=== PATIENT | female | born 1930 | race Caucasian/White ===

== ENCOUNTER 2016-12-14 19:21 | Inpatient (IN) | payer MEDICARE, OTHER ==
[2016-12-14] MEDS ORDERED: Sodium Chloride 0.9% 10 ML Syringe FLUSH PRN (19:38)
[2016-12-14] MEDS ORDERED: Sodium Chloride 0.9% 500 ML IV ONE (19:40)
[2016-12-14] MEDS ORDERED: Acetaminophen 325 MG Tab PO ONE (19:40)
[2016-12-14] MEDS ORDERED: Acetaminophen 500 MG Tab ONE (20:06)
[2016-12-14] MEDS ORDERED: Oseltamivir 75 MG Cap PO ONE (21:26)
[2016-12-15] MEDS: Sodium Chloride 0.9% 1,000 ML IV SCH ×3 (06:41→22:40)
[2016-12-15] MEDS ORDERED: Donepezil 10 MG Tab PO SCH (08:00)
[2016-12-15] MEDS ORDERED: Oseltamivir 75 MG Cap PO SCH (10:15)
[2016-12-15] MEDS ORDERED: atorvaSTATin 10 MG Tab PO ONE (10:16)
[2016-12-15] MEDS ORDERED: Loratadine 10 MG Tab PO ONE (10:20)
[2016-12-15] MEDS: Oseltamivir 30 MG Cap PO SCH ×2 (10:50→19:37)
[2016-12-15] MEDS: Memantine 10 MG Tab PO SCH (10:50)
[2016-12-15] MEDS: Cholecalciferol (Vitamin D3) 1,000 Unit Tab PO SCH (10:50)
[2016-12-15] MEDS: amLODIPine 2.5 MG Tab PO SCH (10:50)
[2016-12-15] MEDS: Nitroglycerin 0.4 MG/HR Transdermal Patch TRDERM SCH (10:51)
[2016-12-15] MEDS: Cyanocobalamin (Vitamin B12) 1,000 MCG Tab PO SCH (11:15)
[2016-12-15] MEDS: Calcium Carbonate 750 MG Tab.Chew PO SCH ×2 (11:15→19:37)
--- NOTE | 2016-12-15 11:54 | HP ---
REASON FOR ADMISSION: Weakness. HISTORY OF PRESENT ILLNESS: An 86-year-old white female brought to the emergency room by her daughter. The patient resides at [facility]. She has been ill since this past with some cough and some weakness and not being able to get up on the bed and not able to transfer appropriately, symptoms were progressively getting worse. She denied any chest pain or shortness of breath. She was having some fever, chills, and questionable sweats. No nausea or vomiting. She had some diarrhea yesterday. No urinary symptoms. She was assessed in the emergency room, found to have influenza A and some mild dehydration. She was given some Tamiflu and some IV fluids and placed on acute care hospitalization status for continuing care. PAST MEDICAL HISTORY: Significant for Parkinson disease, dementia, hypothyroidism, and some type of heart disease described as a leaky valve, but suspect may also be coronary artery disease based on her medication list. MEDICATIONS: As verified from the [facility] medication list are Lipitor 20 mg daily, Norvasc 2.5 mg daily, Coumadin as directed, biotin, potassium 10 mEq b.i.d., nitroglycerin patch 0.4 mg/hour, Namenda 10 mg b.i.d., loratadine 10 mg daily, levothyroxine 88 mcg daily, Lexapro 10 mg daily, vitamin D of 2000 units daily, enalapril 10 mg daily, donepezil/Aricept 10 mg daily, vitamin B12 of 1000 mcg daily, carvedilol 3.125 mg b.i.d., carbidopa and levodopa 25/100 of 1.5 tablets at 8, 12, and 5 p.m., calcium 1 t.i.d., aspirin 81 mg daily, MiraLAX daily, and Lasix 20 mg one half tablet daily. ALLERGIES: Penicillin and angiogram dye. SOCIAL HISTORY: She lives with her at [facility]. REVIEW OF SYSTEMS: Negative except as noted in the HPI. OBJECTIVE: General: She is alert and sitting in bed. Daughter says she is more awake and brighter this morning than yesterday. She slept all night. Vital Signs: She is afebrile, pulse is 76, blood pressure is 130/64, respirations are 18, oxygen saturations 96% on room air. HEENT: TMs negative. Throat is clear. Neck: Supple. No adenopathy. Heart: Regular rate and rhythm. No murmur heard. Lungs: Clear to auscultation. Back: Nontender. Abdomen: Soft and nontender. No masses palpable. Extremities: Warm and dry. No edema. Neurologic: Motor and sensory functions are grossly intact. No focal findings noted. LABORATORY DATA: On admission, white count 6.5, hemoglobin was 11, INR 1.5. Electrolytes were normal. Creatinine 1.1. Creatinine clearance for dosing was 30.65, glucose 129, lactic acid 1.0. LFTs unremarkable. Urinalysis consistent with some mild dehydration. No signs of infection. ASSESSMENT: 1. Influenza secondary to influenza A. 2. Mild dehydration. PLAN: The patient is admitted to acute care status. She identifies Dr. Michelle Hollis as her primary provider, who will accept care tomorrow. She is a code level 3, will be given Tamiflu renal dosing of 30 mg b.i.d. and assume continued IV fluids and normal saline at 125 mL/hour and placed on a regular diet as tolerated. We will also have physical therapy and occupational therapy assess her. Hopefully, she will be ready for discharge in a few days. FM: 12/15/2016 10:16:36 MODL: 12/15/2016 11:44:58 /[id number]
[2016-12-15] MEDS ORDERED: Carbidopa/Levodopa 25-100 MG Tab PO SCH (12:00)
[2016-12-15] MEDS ORDERED: Acetaminophen 325 MG Tab PO PRN (12:55)
[2016-12-15] MEDS: Cephalexin 500 MG Cap PO SCH (14:26)
[2016-12-15] MEDS: Carvedilol 3.125 MG Tab PO SCH (17:38)
[2016-12-15] MEDS: Potassium Chloride 10 MEQ Tab.ER PO SCH (17:39)
[2016-12-15] MEDS: Carbidopa/Levodopa 25-100 MG Tab PO SCH (17:39)
[2016-12-15] MEDS: Aspirin 81 MG Tab.EC PO SCH (19:37)
[2016-12-15] MEDS: Escitalopram 10 MG Tab PO SCH (19:37)
[2016-12-15] MEDS ORDERED: Warfarin 5 MG Tab PO SCH (20:00)
[2016-12-16] MEDS: Cephalexin 500 MG Cap PO SCH ×2 (00:17→11:48)
[2016-12-16] MEDS: Levothyroxine 88 MCG Tab PO SCH (06:16)
[2016-12-16] MEDS: Sodium Chloride 0.9% 1,000 ML IV SCH (06:29)
[2016-12-16] MEDS: Nitroglycerin 0.4 MG/HR Transdermal Patch TRDERM SCH (07:48)
[2016-12-16] MEDS: Carbidopa/Levodopa 25-100 MG Tab PO SCH ×3 (07:49→17:28)
[2016-12-16] MEDS: amLODIPine 2.5 MG Tab PO SCH (07:50)
[2016-12-16] MEDS: Carvedilol 3.125 MG Tab PO SCH ×2 (07:50→17:27)
[2016-12-16] MEDS: Cyanocobalamin (Vitamin B12) 1,000 MCG Tab PO SCH (07:50)
[2016-12-16] MEDS: Escitalopram 10 MG Tab PO SCH (07:50)
[2016-12-16] MEDS: Cholecalciferol (Vitamin D3) 1,000 Unit Tab PO SCH (07:50)
[2016-12-16] MEDS: Oseltamivir 30 MG Cap PO SCH ×2 (07:50→19:45)
[2016-12-16] MEDS: Donepezil 10 MG Tab PO SCH (07:50)
[2016-12-16] MEDS: Potassium Chloride 10 MEQ Tab.ER PO SCH ×2 (07:51→17:27)
[2016-12-16] MEDS: Memantine 10 MG Tab PO SCH (07:51)
[2016-12-16] MEDS: Calcium Carbonate 750 MG Tab.Chew PO SCH ×3 (07:51→19:46)
--- NOTE | 2016-12-16 09:12 | PN ---
Progress Note for VIVEK ANDERSON Date: 12/16/2016 Room #: VM.203 SUBJECTIVE: An 86-year-old admitted on Friday evening for influenza A and strep throat. She has been afebrile. She is not eating much. She says her cough is better. She is not short of breath. No abdominal pain, but she did have to go to the bathroom, urinate. Her UA was negative. She does have dementia. She lives at assisted living with her . She has Parkinson's as well. OBJECTIVE: Vital Signs: Her temperature is 98.2, pulse 74, blood pressure 151/77, respiratory rate 20, O2 of 96% on room air. General: She is in no acute distress. Heart: Irregularly irregular. Lungs: Lung sounds are clear to auscultation bilaterally without crackles or wheezes. Abdomen: Positive bowel sounds. It is soft. Nontender in the upper quadrant. The suprapubic area has some tenderness, but the bladder is mildly distended. She was going to try voiding after my exam. Extremities: Warm and dry. No edema. Mental Status: She is alert. She is aware she is in the hospital. ASSESSMENT: 1. Influenza A. 2. Strep throat. She still feels like she has a little lump in her throat, but no soreness. We will continue to encourage p.o. intake. 3. Dehydration due to poor intake from acute illness. 4. Underlying dementia without significant delirium. 5. Atrial fibrillation on Coumadin. We will check an INR today. 6. Essential hypertension with mildly elevated blood pressures. We will continue to monitor. We will go ahead and stop her fluids. PLAN: At this point, the patient will continue acute cares. We will check lab work today. We will get her up and working with therapies. If she does well she may be able to return home tomorrow. She is agreeable to this plan. For DVT prophylaxis, she was not started on any Lovenox as long as her hemoglobin is stable, this morning, and no signs of bleeding. I will start her on Lovenox today. MKA: 12/16/2016 08:49:42 MODL: 12/16/2016 09:04:49 /[id number]
[2016-12-16 09:31] LABS: CHLORIDE,CL 110 mmol/L (98-107); SODIUM,NA 143 mmol/L (136-145)
[2016-12-16] MEDS: Aspirin 81 MG Tab.EC PO SCH (19:46)
[2016-12-16] MEDS ORDERED: Warfarin 2.5 MG Tab PO SCH (20:00)
[2016-12-17] MEDS: Cephalexin 500 MG Cap PO SCH ×2 (02:36→11:48)
[2016-12-17] MEDS: Levothyroxine 88 MCG Tab PO SCH (06:15)
[2016-12-17] MEDS: Carvedilol 3.125 MG Tab PO SCH (07:36)
[2016-12-17] MEDS: Oseltamivir 30 MG Cap PO SCH (07:36)
[2016-12-17] MEDS: amLODIPine 2.5 MG Tab PO SCH (07:36)
[2016-12-17] MEDS: Donepezil 10 MG Tab PO SCH (07:36)
[2016-12-17] MEDS: Potassium Chloride 10 MEQ Tab.ER PO SCH (07:36)
[2016-12-17] MEDS: Carbidopa/Levodopa 25-100 MG Tab PO SCH ×2 (07:37→11:48)
[2016-12-17] MEDS: Escitalopram 10 MG Tab PO SCH (07:37)
[2016-12-17] MEDS: Memantine 10 MG Tab PO SCH (07:37)
[2016-12-17] MEDS: Cholecalciferol (Vitamin D3) 1,000 Unit Tab PO SCH (07:37)
[2016-12-17] MEDS: Cyanocobalamin (Vitamin B12) 1,000 MCG Tab PO SCH (07:37)
[2016-12-17] MEDS: Nitroglycerin 0.4 MG/HR Transdermal Patch TRDERM SCH (07:37)
[2016-12-17] MEDS: Calcium Carbonate 750 MG Tab.Chew PO SCH ×2 (07:38→11:48)
[2016-12-17] MEDS ORDERED: Enoxaparin 40 MG/0.4 ML Syringe SUBCUT ONE (08:16)
[2016-12-17] MEDS ORDERED: Carvedilol 6.25 MG Tab PO SCH (08:30)
[2016-12-17] MEDS ORDERED: Bisacodyl 10 MG Supp RECTAL ONE (08:49)
[2016-12-17] MEDS ORDERED: Carvedilol 3.125 MG Tab PO ONE (09:30)
[2016-12-17 09:40] VITALS: BP 103/63
--- NOTE | 2016-12-17 13:27 | DISCH ---
PRIMARY DISCHARGE DIAGNOSES: 1. Influenza A with weakness related to that. 2. Group A strep pharyngitis with dehydration related to poor oral intake from acute illness. 3. Underlying dementia. 4. Atrial fibrillation with rapid ventricular response secondary to acute illness, improved during her stay. 5. Essential hypertension with elevated blood pressures with increase of Coreg to 6.25 mg daily on discharge. 6. Moderate malnutrition. 7. Parkinson's. REASON FOR ADMISSION: On the date of admission, this 86-year-old female, who lives at assisted living with her and significant family support, was brought over to the ER due to not feeling well. She had not been eating much. She had been coughing. She was found to have influenza A and strep throat. She had no further fevers during her stay. Her cough improved. She was not short of breath. She was not found to have any pneumonia. She was treated with Tamiflu 30 mg twice daily. She was also given Keflex given her penicillin allergy. She was tolerating that and doing well. She was up working with therapy. It was felt she was back to her baseline and stable for discharge back to [facility]. Otherwise, she had a UA tested during her stay which was negative for any infection. Her lab work was monitored and her blood cultures were negative for any growth. Her INR was slightly low at 1.4 on 12/16/2016 and she did receive a 1 time dose of Lovenox 40 mg for DVT prophylaxis. INR had improved up to 1.8 on discharge. She was continued on her home dose of alternating 2.5 Friday, Friday, and Friday with 5 mg on Friday, , Friday, and Friday. Hemoglobin did drop slightly to 10.5, but there were no acute signs of bleeding. It was 11 on admission. Creatinine was up to 1.1 on admission and improved down to 0.8 after IV fluids. AST was mildly elevated at 57 and then up to 82 but ALT was normal. Albumin was low at 3. DISCHARGE PHYSICAL EXAMINATION: Vital Signs: Discharge vitals; the patient's temperature 98.6, pulse 73, blood pressure 163/86 but did go down to 103/63 on discharge, respiratory rate 20, O2 of 98% on room air. General: She was in no acute distress. Heart: Irregularly irregular without significant murmur. Lungs: Sounds were clear to auscultation bilaterally without crackles or wheezes. Abdomen: Positive bowel sounds. Soft and nontender. Extremities: Warm and dry. No edema. Mental Status: She is alert. She is orientated that she is in the hospital but she is unaware of the date. She did ask me to write down her instructions so she would not forget them as she does have poor short-term memory. DISCHARGE PLANS AND INSTRUCTIONS: She will be on Tamiflu 30 mg twice daily for another 4 doses, Keflex 500 mg twice daily for another week. Coreg will increase to 6.25 mg daily. She will have an INR in 2 days on . She will be followed by home health. She will otherwise not need any lab work when she returns to see me on 12/27/2016 unless it was previously arranged. MKA: 12/17/2016 12:49:58 MODL: 12/17/2016 13:18:47 /[id number]
--- NOTE | 2016-12-17 14:46 | DISCH ---
ADDENDUM: The patient requires skilled nursing PT and OT to evaluate and manage for ongoing symptoms from her recent hospital stay for influenza and strep throat. She has elevated blood pressures which required medication changes. She has underlying atrial fibrillation, which requires monitoring for tachycardia and followup INR checks. Nursing will assess and teach her how to manage at home with assistance of her and family. I will periodically review this plan of care and she does have a followup visit with me in December. A ivtg-[id number] visit occurred on 12/17/2016, and she is homebound secondary to her dementia and cognitive impairment, which requires supervision of another person to leave her home. MKA: 12/17/2016 13:05:39 MODL: 12/17/2016 13:28:50 /[id number]
--- NOTE | 2016-12-23 07:50 | ER ---
Date of Service: 12/14/2016 SUBJECTIVE: Jocyelyn presents to the emergency room with her daughter. The patient is a resident at [facility]. States that for the past several days has been experiencing cough and weakness and has been unable to get out of bed. She resides in the [facility], which is not a prison and is not equipped to handle the patient's who are unable to stand transfer. The patient states that she has been extremely weak. Also been experiencing fever, chills, and sweats. She has not been experiencing any nausea or vomiting. She has had several episodes of diarrhea, but no dysuria. The patient states that she did get her influenza vaccination this year. She states that she does have a history of Parkinson disease and dementia, and her daughter states that when she does get acutely ill, she does become extremely weak and is unable to do much the way for self transferring and activities for daily living. PAST MEDICAL HISTORY: 1. Parkinson disease. 2. Dementia. 3. Hypothyroidism. 4. Valvular heart disease. 5. Coronary artery disease. 6. Dyslipidemia. 7. Depression. 8. Anxiety. 9. B12 deficiency. MEDICATIONS: 1. Lipitor 20 mg daily. 2. Norvasc 2.5 mg daily. 3. Coumadin. 4. Biotin. 5. Potassium chloride 10 mEq b.i.d. 6. Nitroglycerin patch. 7. Namenda 10 mg b.i.d. 8. Loratadine 10 mg daily. 9. Levothyroxine 88 mcg daily. 10.Lexapro 10 mg daily. 11.Vitamin D 2000 units daily. 12.Enalapril 10 mg daily. 13.Donepezil. 14.Aricept. 15.Vitamin B12. 16.Carvedilol 3.125 mg b.i.d. 17.Carbidopa and levodopa 25/100 one and a half tablets at 8:00, 12:00, and 5:00 p.m. 18.Calcium supplement 1 three times daily. 19.Aspirin 81 mg daily. 20.MiraLAX 17 g p.o. daily. 21.Lasix 20 mg one half tablet daily. ALLERGIES: Penicillin and angiogram dye. SOCIAL HISTORY: She lives with her at [facility]. She is a nonsmoker, nondrinker. She is accompanied by her daughter. REVIEW OF SYSTEMS: Please see history of present illness. She denies any chest pain, shortness of breath, abdominal pain, dysuria, numbness or tingling in her extremities, difficulties with speech, ambulation, or other worrisome signs or symptoms. PHYSICAL EXAMINATION: General: This is an 86-year-old female patient, in no acute distress. Vital signs: Blood pressure is 141/58, temperature is 37.7, pulse rate 85, and respiratory rate is 20. Skin: Warm, pale, and dry. HEENT: Head is normocephalic, atraumatic. Mouth, oral mucosa is moist. No erythema or exudate noted in the hypopharynx. Neck: Supple, without masses. There is no lymphadenopathy. Lungs: Clear to auscultation. Heart: Regular rate and rhythm. No murmurs are noted. Abdomen: Soft and nontender. There are no masses noted. There is no hepatosplenomegaly noted. Extremities: Without edema. Neurologic: She is alert and oriented. Somewhat confused on initial examination, but is able to answer questions about this acute illness. Her long- term memory is poor. Remainder of her physical examination is within normal limits. LABORATORY DATA: WBC 6.5I, hemoglobin of 11. INR is 1.5. Sodium is 141, potassium is 3.6, chloride is 104, bicarb is 27, BUN is 25, creatinine is 1.1, creatinine clearance is 30.65, GFR is 47, glucose is 129, lactic acid 1.0, calcium is 8.3, and corrected calcium is 8.78. Total bilirubin is 0.5, AST is 57, ALT is 13, alkaline phosphatase is 79, C-reactive protein is 0.7, and albumin is 3.4. Urinalysis was obtained. She did have a trace ketones, moderate blood, negative nitrites, and leukocyte esterase. The patient was swabbed for influenza and was positive for influenza A. ASSESSMENT: 1. Influenza A. 2. Weakness. PLAN: The patient was started on normal saline at 125 an hour. Throat was cultured as quick strep was negative. Blood cultures x2 were obtained and are pending as are urine cultures. The patient was admitted acutely as Dr. Alcantara and Dr. Alcantara was the attending physician. The patient is a DNR. MWK: 12/22/2016 20:50:26 MODL: 12/23/2016 00:48:50 /[id number]
== END 2016-12-17 13:10 | disposition home health service (06) | DRG 194 ==
LOC: VM.ED 19:21 → VM.MS 21:18
PROVIDERS: ADMIT Family Medicine; ATTEND Internal Medicine
DX: J09.X2 Influenza due to identified novel influenza A virus with other respiratory manifestations (principal); E46 Unspecified protein-calorie malnutrition; E86.0 Dehydration; Z79.82 Long term (current) use of aspirin; Z79.899 Other long term (current) drug therapy; G20 Parkinson's disease; F02.80 Dementia in other diseases classified elsewhere, unspecified severity, without behavioral disturbance, psychotic disturbance, mood disturbance, and anxiety; E03.9 Hypothyroidism, unspecified; I25.10 Atherosclerotic heart disease of native coronary artery without angina pectoris; E78.5 Hyperlipidemia, unspecified; F41.8 Other specified anxiety disorders; E53.8 Deficiency of other specified B group vitamins; R30.0 Dysuria; R50.9 Fever, unspecified; Z79.01 Long term (current) use of anticoagulants; Z88.0 Allergy status to penicillin; R19.7 Diarrhea, unspecified; I48.91 Unspecified atrial fibrillation; I10 Essential (primary) hypertension; Z68.23 Body mass index [BMI] 23.0-23.9, adult
CPT/HCPCS: 36415; 71010; 80053; 81001; 83605; 85025; 85610; 86140; 87040 ×2; 87081; 87804 ×2; 87880; 96365; 99284; 99285; A9270; J7030; J7050; 97161-GP; 97165-GO; 97532-GO; J1650

== ENCOUNTER 2017-05-14 18:03 | Emergency (ER) | payer MEDICARE, OTHER ==
[2017-05-14] MEDS ORDERED: Sodium Chloride 0.9% 10 ML Syringe FLUSH PRN (18:08)
[2017-05-14 18:48] LABS: CHLORIDE,CL 107 mmol/L (98-107); SODIUM,NA 143 mmol/L (136-145)
[2017-05-14 19:05] VITALS: BP 118/48
--- NOTE | 2017-05-15 08:25 | ER ---
Date of Service: 05/14/2017 SUBJECTIVE: Joycelyn presents to the emergency room with complaints of left hip pain and hematoma to head as well as acute on chronic neck pain. The patient is a resident at [facility] and apparently had a fall. She did land fall forward and did strike her forehead on the ground, it is believed. It is unknown specifically how the patient fell and the patient is unable to recall this. She did complain to the nursing staff that she was experiencing significant tenderness to her left hip area. EMS stated that they did not notice any foreshortening of the extremity and stated that she was alert and oriented during the entirety of her stay with them. PAST MEDICAL HISTORY: 1. AFib. 2. Coronary artery disease. 3. Hyperlipidemia. 4. Hypertension. 5. Hypothyroidism. 6. Osteopenia. 7. Parkinson's. 8. 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 9. Anxiety. MEDICATIONS: Please see nurse's notes. ALLERGIES: Penicillin and angiogram dye. REVIEW OF SYSTEMS: General: Denies any fever or chills. HEENT: No sore throat, rhinorrhea, or congestion. Respiratory/Cardiac: Denies any chest pain or shortness of breath prior to, during, or following the fall. GI: No nausea, vomiting, or diarrhea. No melena, hematochezia, or hematemesis. : Denies any dysuria. Musculoskeletal: Again, does complain of left hip pain. Neurologic: Denies any fainting, blackouts, or lightheadedness. Please see history of present illness. PHYSICAL EXAMINATION: General: This is an 86-year-old female patient, who is in no acute distress. Vital Signs: Blood pressure is 113/48, pulse rate 74, temperature is 37.2, respiratory rate is 20, O2 saturation is 100%. Skin: Warm, pink, and dry. HEENT: Head is normocephalic. She does have a large hematoma to the forehead area. No obvious step-off deformity noted. Eyes: PERRLA. Extraocular movements are intact. Ears: TMs are clear. Spine: She does have some midline cervical spine pain. No discomfort on manipulation of the thoracic and lumbar spine. Musculoskeletal: No increased discomfort with manipulation of the patient's left hip. No crepitus or deformity noted. Abdomen: Soft, nontender. There is no hepatosplenomegaly or masses noted. DIAGNOSTIC DATA: Radiographs of the patient's left hip were obtained. It did not reveal any acute pathology. CT scan of the patient's brain and cervical spine were obtained and did not reveal any acute pathology. ASSESSMENT: 1. Left hip sprain. 2. Closed-head injury and forehead hematoma. 3. Acute on chronic cervical spinal pain. PLAN: The patient will be discharged. Advised that they have her follow up in the clinic in the next 5-7 days. Return to the emergency room if she is having increased discomfort in the left hip. All questions were answered. MWK: 05/15/2017 02:21:38 MODL: 05/15/2017 07:17:06 /[id number]
== END 2017-05-14 20:00 ==
LOC: VM.ED 18:03
DX: S09.90XA Unspecified injury of head, initial encounter (principal); S73.102A Unspecified sprain of left hip, initial encounter; S00.83XA Contusion of other part of head, initial encounter; I48.91 Unspecified atrial fibrillation; I25.10 Atherosclerotic heart disease of native coronary artery without angina pectoris; E78.5 Hyperlipidemia, unspecified; I10 Essential (primary) hypertension; E03.9 Hypothyroidism, unspecified; G20 Parkinson's disease; W18.00XA Striking against unspecified object with subsequent fall, initial encounter
CPT/HCPCS: 70450; 72125; 80053; 85025; 85610; 99284; 99284-GF